=== PATIENT | male | born 1975 | race African-American/Black ===

== ENCOUNTER 2023-11-19 13:17 | Inpatient (IN) | payer OTHER ==
[~2023-11-19 13:17] MED LIST: Iopamidol-370 76% 500 ML MDV (1 ML CHARGE) ONE
[2023-11-19] MEDS ORDERED: CEFAZOLIN 2 GM VIAL ONE ×2 (13:33→15:10)
[2023-11-19] MEDS ORDERED: Boostrix 0.5 ML (Tdap) VIAL (>/=7 yrs of age) ONE (13:33)
[2023-11-19] MEDS ORDERED: Sodium Chloride 0.9% 100 ML ONE ×2 (13:33→15:10)
[2023-11-19 13:36] LABS: #Basophils 0.1 thou/uL (0.0-0.2); #Eosinphils 0.2 thou/uL (0.0-0.7); #Monocytes 0.7 thou/uL (0.11-0.59); #Neutrophils 6.3 thou/uL (1.40-6.50); %Basophils 0.6 % (0.0-1.0); %Lymphocytes 24.2 % (21.0-51.0); %Monocytes 7.6 % (0.0-10.0); %Neutrophils 65.1 % (42.0-75.0); Hematocrit 34.2 % (42.0-52.0); Hemoglobin 9.8 g/dL (14.0-18.0); Mean Corpuscular HGB CONC 28.7 g/dL (32.0-36.0); Mean Corpuscular Hemoglobin 23.7 pg (27.0-31.0); Mean Corpuscular Volume 82.8 fl (78.0-98.0); Mean Platelet Volume 10.2 fL (7.4-10.4); Platelet Count 326 10x3/uL (130-400); RBC Distribution Width 17.6 % (11.5-14.5); Red Blood Cell (RBC) Count 4.13 mill/uL (4.70-6.10); White Blood Cell (WBC) Count 9.7 10x3/uL (4.8-10.8)
[2023-11-19] MEDS ORDERED: Morphine 4 MG/ML VIAL ONE ×2 (13:36→13:52)
[2023-11-19] MEDS ORDERED: Ondansetron PF 4 MG/2 ML Vial ONE ×3 (13:36→17:28)
[2023-11-19 13:54] LABS: ALT (SGPT) 21 U/L (8-55); AST (SGOT) 33 U/L (5-34); Albumin 3.7 g/dL (3.5-5.0); Alkaline Phosphatase 77 U/L (40-110); Anion Gap 12 mmol/L (10-20); BUN (Urea Nitrogen) 12 mg/dL (8.9-20.6); Bilirubin, Total 0.5 mg/dL (0.2-1.2); Calc. Creatinine Clearance 0 mL/min (70-130); Calcium 8.7 mg/dL (7.8-10.44); Carbon Dioxide 18 mmol/L (22-29); Chloride 106 mmol/L (98-107); Estimated GFR 84; Globulin 2.9 g/dL (2.4-3.5); Glucose 144 mg/dL (70-105); Potassium 3.6 mmol/L (3.5-5.1); Protein, Total 6.6 g/dL (6.0-8.3); Sodium 132 mmol/L (136-145)
[2023-11-19 14:07] LABS: Anisocytosis SLIGHT = 6-15 cells HPF (0-5); CellaVision Operator ID LAB.MJL; Hypochromia SLIGHT = 6-15 cells HPF (0-5); Ovalocytes SLIGHT = 2-5 cells HPF (0-1); Platelet Adequacy Comment Platelets Normal; Poikilocytosis SLIGHT = 6-15 cells HPF (0-5); Polychromasia SLIGHT = 2-3 cells HPF (0-2); Target Cells SLIGHT = 2-5 cells HPF (0-1)
[2023-11-19] MEDS ORDERED: Dextrose 50% Abboject 50 ML SYRINGE SLOW IVP PRN (14:13)
[2023-11-19] MEDS ORDERED: Dextrose 5% in Water 1,000 ML IV PRN (14:13)
[2023-11-19] MEDS ORDERED: Glucagon 1 MG/ML KIT IM PRN (14:13)
[2023-11-19] MEDS ORDERED: Ipratropium/Albuterol 3 ML NEB NEB PRN (14:13)
[2023-11-19] MEDS ORDERED: Ondansetron PF 4 MG/2 ML Vial IVP PRN ×2 (14:13→17:33)
[2023-11-19] MEDS ORDERED: Ondansetron ODT 4 MG TAB PO PRN (14:13)
[2023-11-19] MEDS ORDERED: Morphine 2 MG/ML VIAL SLOW IVP PRN (14:13)
[2023-11-19] MEDS ORDERED: Rib Fracture Protocol PO SCH (14:15)
[2023-11-19 14:49] LABS: Acetaminophen Less than 10 mcg/mL (10.0-30.0); Alcohol Less than 10.0 mg/dL (Less than 10); Salicylate Less than 8.0 mg/dL (15.0-30.0)
[2023-11-19 14:54] LABS: Troponin I Less than 0.010 ng/mL (< 0.028)
[2023-11-19] MEDS ORDERED: KETAMINE 100 MG/ML (5ML VIAL) ONE (15:04)
[2023-11-19] MEDS ORDERED: Etomidate 40 MG (20 mL) VIAL ONE (15:04)
[2023-11-19] MEDS ORDERED: Rocuronium Bromide 10 MG/ML (10ML VIAL) ONE (15:07)
[2023-11-19] MEDS ORDERED: Lidocaine 1% PF 5 ML VIAL ONE (15:07)
[2023-11-19] MEDS ORDERED: Dexamethasone 20 MG/5 ML VIAL ONE (15:07)
[2023-11-19] MEDS ORDERED: SUCCINYLCHOLINE/SOD CL,ISO/PF 200 MG/10 ML SYRINGE FS ONE (15:07)
[2023-11-19] MEDS ORDERED: fentaNYL PF 100 MCG/2 ML SYRINGE ONE ×3 (15:07→16:15)
[2023-11-19 15:35] LABS: #Basophils 0.1 thou/uL (0.0-0.2); #Eosinphils 0.1 thou/uL (0.0-0.7); #Monocytes 1.5 thou/uL (0.11-0.59); #Neutrophils 20.5 thou/uL (1.40-6.50); %Basophils 0.3 % (0.0-1.0); %Eosinophils 0.3 % (0.0-10.0); %Lymphocytes 4.4 % (21.0-51.0); %Monocytes 6.5 % (0.0-10.0); %Neutrophils 87.9 % (42.0-75.0); Hematocrit 29.3 % (42.0-52.0); Hemoglobin 8.8 g/dL (14.0-18.0); Mean Corpuscular Hemoglobin 23.7 pg (27.0-31.0); Mean Platelet Volume 10.1 fL (7.4-10.4); Platelet Count 319 10x3/uL (130-400); RBC Distribution Width 17.3 % (11.5-14.5); Red Blood Cell (RBC) Count 3.71 mill/uL (4.70-6.10)
[2023-11-19 15:36] LABS: White Blood Cell (WBC) Count 23.3 10x3/uL (4.8-10.8)
[2023-11-19 15:46] LABS: INR-International Normal Ratio 1.2; PTT 26.6 sec (22.9-36.1); Prothrombin Time 14.7 sec (12.0-14.7)
[2023-11-19 16:03] LABS: Anion Gap 11 mmol/L (10-20); BUN (Urea Nitrogen) 12 mg/dL (8.9-20.6); Calc. Creatinine Clearance 0 mL/min (70-130); Calcium 8.1 mg/dL (7.8-10.44); Carbon Dioxide 21 mmol/L (22-29); Chloride 106 mmol/L (98-107); Estimated GFR 99; Glucose 161 mg/dL (70-105); Potassium 4.7 mmol/L (3.5-5.1); Sodium 133 mmol/L (136-145)
[2023-11-19] MEDS ORDERED: Calcium Chloride 1 GM/10 ML Abboject SYRINGE ONE (16:51)
[2023-11-19] MEDS ORDERED: Metoclopramide HCl 10 MG (2 mL) VIAL ONE (17:28)
[2023-11-19] MEDS ORDERED: HYDROmorphone 2 MG/ML VIAL ONE (17:28)
[2023-11-19] MEDS ORDERED: Promethazine HCl 25 MG/ML VIAL IM PRN ×2 (17:33)
[2023-11-19] MEDS ORDERED: diphenhydrAMINE 50 MG/ML VIAL IM PRN (17:33)
[2023-11-19] MEDS ORDERED: Ondansetron HCl/PF 4 MG/2 ML Vial IVP PRN (17:33)
[2023-11-19] MEDS ORDERED: HYDROmorphone 2 MG/ML VIAL SLOW IVP PRN (17:33)
[2023-11-19] MEDS ORDERED: HYDROmorphone/PF 10 MG in Sodium Chloride 0.9% 99 ML IV PRN (17:33)
[2023-11-19] MEDS ORDERED: Naloxone HCl 0.4 mg/ml Vial IV PRN (17:33)
[2023-11-19] MEDS ORDERED: diphenhydrAMINE 50 MG/ML VIAL IVP PRN (17:33)
[2023-11-19] MEDS ORDERED: Morphine Sulfate 2 MG/ML SYRINGE SLOW IVP PRN (17:33)
[2023-11-19] MEDS ORDERED: Meperidine HCl/PF 25 MG/ML VIAL SLOW IVP PRN (17:33)
[2023-11-19] MEDS ORDERED: diphenhydrAMINE 25 MG CAP PO PRN (17:33)
[2023-11-19] MEDS ORDERED: Communication Order-Pharmacy FS SCH (17:45)
[2023-11-19] MEDS ORDERED: HYDROmorphone/PF 10 MG in Sodium Chloride 0.9% 99 ML IVPB PRN (18:00)
[2023-11-19] MEDS ORDERED: Dexmedetomidine 200 MCG/2 ML VIAL ONE (18:33)
[2023-11-19 21:01] LABS: Critical Call Chem-Lactate NUR.SEG1@2101; Lactic Acid 4.6 mmol/L (0.5-2.2)
[2023-11-19] MEDS: Sodium Chloride 0.9% 1,000 ML IV SCH (21:41)
[2023-11-19] MEDS: CEFAZOLIN 2 GM in Sodium Chloride 0.9% 100 ML IVPB SCH (21:41)
[2023-11-19 21:47] VITALS: BMI 24.3
[2023-11-20 04:49] LABS: #Monocytes 1.1 thou/uL (0.11-0.59); #Neutrophils 8.9 thou/uL (1.40-6.50); %Basophils 0.1 % (0.0-1.0); %Lymphocytes 8.3 % (21.0-51.0); %Monocytes 9.8 % (0.0-10.0); %Neutrophils 81.3 % (42.0-75.0); Hematocrit 28.2 % (42.0-52.0); Mean Corpuscular HGB CONC 31.9 g/dL (32.0-36.0); Mean Corpuscular Hemoglobin 24.8 pg (27.0-31.0); Mean Corpuscular Volume 77.7 fl (78.0-98.0); Platelet Count 229 10x3/uL (130-400); RBC Distribution Width 16.5 % (11.5-14.5); Red Blood Cell (RBC) Count 3.63 mill/uL (4.70-6.10)
[2023-11-20] MEDS: Acetaminophen 500 MG TAB PO SCH (05:16)
[2023-11-20] MEDS: Cyclobenzaprine 10 MG TAB PO PRN (05:16)
[2023-11-20 05:31] LABS: ALT (SGPT) 23 U/L (8-55); AST (SGOT) 44 U/L (5-34); Albumin 3.2 g/dL (3.5-5.0); Alkaline Phosphatase 54 U/L (40-110); Anion Gap 12 mmol/L (10-20); BUN (Urea Nitrogen) 10 mg/dL (8.9-20.6); Bilirubin, Total 0.5 mg/dL (0.2-1.2); Calc. Creatinine Clearance 119 mL/min (70-130); Calcium 8.2 mg/dL (7.8-10.44); Carbon Dioxide 23 mmol/L (22-29); Chloride 106 mmol/L (98-107); Estimated GFR 107; Globulin 2.4 g/dL (2.4-3.5); Glucose 131 mg/dL (70-105); Potassium 4.5 mmol/L (3.5-5.1); Protein, Total 5.6 g/dL (6.0-8.3); Sodium 136 mmol/L (136-145)
[2023-11-20] MEDS: Gabapentin 300 MG CAP PO SCH (08:37)
[2023-11-20] MEDS: HYDROcodone/Acetaminophen 10/325 mg Tablet PO PRN (18:25)
[2023-11-20] MEDS: fentaNYL 50 mcg/mL 1 mL Vial SLOW IVP PRN (19:27)
[2023-11-21] MEDS: Acetaminophen 500 MG TAB PO PRN (14:23)
[2023-11-21] MEDS: HYDROcodone/Acetaminophen 10/325 mg Tablet PO PRN (19:15)
[2023-11-21] MEDS: Enoxaparin 40 MG (0.4 mL) SYRINGE SC SCH (20:29)
[2023-11-22 10:07] LABS: #Monocytes 0.9 thou/uL (0.11-0.59); #Neutrophils 8.3 thou/uL (1.40-6.50); %Basophils 0.4 % (0.0-1.0); %Eosinophils 0.2 % (0.0-10.0); %Monocytes 8.4 % (0.0-10.0); %Neutrophils 82.6 % (42.0-75.0); Hemoglobin 8.3 g/dL (14.0-18.0); Mean Corpuscular HGB CONC 30.7 g/dL (32.0-36.0); Mean Corpuscular Hemoglobin 24.5 pg (27.0-31.0); Mean Corpuscular Volume 79.6 fl (78.0-98.0); Mean Platelet Volume 9.6 fL (7.4-10.4); Platelet Count 230 10x3/uL (130-400); RBC Distribution Width 17.1 % (11.5-14.5); Red Blood Cell (RBC) Count 3.39 mill/uL (4.70-6.10); White Blood Cell (WBC) Count 10.1 10x3/uL (4.8-10.8)
[2023-11-22 10:37] LABS: ALT (SGPT) 14 U/L (8-55); AST (SGOT) 42 U/L (5-34); Albumin 3.1 g/dL (3.5-5.0); Alkaline Phosphatase 57 U/L (40-110); Anion Gap 10 mmol/L (10-20); BUN (Urea Nitrogen) 8 mg/dL (8.9-20.6); Bilirubin, Total 0.6 mg/dL (0.2-1.2); Calc. Creatinine Clearance 131 mL/min (70-130); Calcium 8.2 mg/dL (7.8-10.44); Carbon Dioxide 24 mmol/L (22-29); Chloride 101 mmol/L (98-107); Estimated GFR 110; Globulin 2.9 g/dL (2.4-3.5); Glucose 97 mg/dL (70-105); Potassium 4.1 mmol/L (3.5-5.1); Sodium 131 mmol/L (136-145)
[2023-11-23 12:03] VITALS: BP 133/78; TEMP 98.1
== END 2023-11-23 15:42 | disposition home or self-care (01) | DRG 956 ==
LOC: ERS 13:17 → SDC 14:55 → SURG A 18:04
PROVIDERS: ADMIT Orthopaedic Surgery; ATTEND Orthopaedic Surgery
PROC: 0QSB04Z Reposition Right Lower Femur with Internal Fixation Device, Open Approach (ICD-10-PCS; principal; 2023-11-19)
PROC: 3E0234Z Introduction of Serum, Toxoid and Vaccine into Muscle, Percutaneous Approach (ICD-10-PCS; 2023-11-19)
DX: S72.461B Displaced supracondylar fracture with intracondylar extension of lower end of right femur, initial encounter for open fracture type I or II (principal); S27.329A Contusion of lung, unspecified, initial encounter; S22.42XA Multiple fractures of ribs, left side, initial encounter for closed fracture; V69.9XXA Occupant (driver) (passenger) of heavy transport vehicle injured in unspecified traffic accident, initial encounter; Y92.89 Other specified places as the place of occurrence of the external cause
CPT/HCPCS: 36415; 36416; 36430; 70450; 71045; 71260; 72125; 72170; 74177; 80053; 80307; 83605; 84484; 85025; 85610; 85730; 86850; 86900; 86901; 90715; 93005; C1713; G0390; J1100; J1170; J1650; J2270; J2405; J2765; J3010; J3490; J7050; P9016; Q9967

== ENCOUNTER 2023-12-06 06:14 | Inpatient (IN) | payer OTHER ==
[2023-12-06] MEDS ORDERED: fentaNYL PF 100 MCG/2 ML SYRINGE ONE ×2 (07:00→10:00)
[2023-12-06] MEDS ORDERED: Rocuronium Bromide 10 MG/ML (10ML VIAL) ONE (07:00)
[2023-12-06] MEDS ORDERED: Lidocaine 2% PF 5 ML VIAL ONE (07:00)
[2023-12-06] MEDS ORDERED: Ondansetron PF 4 MG/2 ML Vial ONE (07:00)
[2023-12-06] MEDS ORDERED: Dexamethasone 20 MG/5 ML VIAL ONE (07:00)
[2023-12-06] MEDS ORDERED: PROPOFOL 20 ML ONE (07:01)
[2023-12-06] MEDS ORDERED: Midazolam HCl 2 mg/2 ml Vial ONE (07:06)
[2023-12-06] MEDS ORDERED: fentaNYL 50 mcg/mL 1 mL Vial ONE ×2 (07:06→11:25)
[2023-12-06] MEDS ORDERED: Bupivacaine PF 0.5% 30 ML VIAL ONE (07:07)
[2023-12-06] MEDS ORDERED: Sodium Chloride 0.9% 100 ML ONE (07:09)
[2023-12-06] MEDS ORDERED: CEFAZOLIN 2 GM VIAL ONE (07:09)
[2023-12-06] MEDS ORDERED: SUCCINYLCHOLINE/SOD CL,ISO/PF 200 MG/10 ML SYRINGE FS ONE (07:34)
[2023-12-06] MEDS ORDERED: Glycopyrrolate 0.2 MG/ML 5 ML SYRINGE ONE (09:57)
[2023-12-06] MEDS ORDERED: NEOSTIGMINE 3 MG/3 ML SYR 3 MG/3 ML SYRINGE ONE (09:57)
[2023-12-06] MEDS ORDERED: Ketorolac Tromethamine 30 MG (1 mL) VIAL ONE (09:57)
[2023-12-06] MEDS ORDERED: HYDROmorphone 2 MG/ML VIAL ONE (10:12)
[2023-12-06] MEDS ORDERED: Promethazine HCl 25 MG/ML VIAL IM PRN (10:33)
[2023-12-06] MEDS ORDERED: Ondansetron HCl/PF 4 MG/2 ML Vial IVP PRN (10:33)
[2023-12-06] MEDS ORDERED: HYDROmorphone 2 MG/ML VIAL SLOW IVP PRN (10:33)
[2023-12-06] MEDS ORDERED: Ondansetron PF 4 MG/2 ML Vial SLOW IVP PRN (10:55)
[2023-12-06] MEDS ORDERED: HYDROmorphone 0.5 MG/0.5 ML SYRINGE ONE (12:27)
[2023-12-06] MEDS: HYDROcodone/Acetaminophen 10/325 mg Tablet PO PRN (13:53)
[2023-12-06 15:10] VITALS: BMI 24.3
[2023-12-06] MEDS: Morphine 2 MG/ML VIAL SLOW IVP PRN (16:40)
[2023-12-07 05:26] LABS: #Basophils 0.1 thou/uL (0.0-0.2); #Eosinphils 0.1 thou/uL (0.0-0.7); #Neutrophils 8.7 thou/uL (1.40-6.50); %Basophils 0.5 % (0.0-1.0); %Eosinophils 0.5 % (0.0-10.0); %Monocytes 8.8 % (0.0-10.0); %Neutrophils 78.8 % (42.0-75.0); Hemoglobin 8.1 g/dL (14.0-18.0); Mean Corpuscular Hemoglobin 24.4 pg (27.0-31.0); Mean Corpuscular Volume 81.3 fl (78.0-98.0); Mean Platelet Volume 8.8 fL (7.4-10.4); Platelet Count 846 10x3/uL (130-400); RBC Distribution Width 18.7 % (11.5-14.5); Red Blood Cell (RBC) Count 3.32 mill/uL (4.70-6.10)
[2023-12-07] MEDS: HYDROcodone/Acetaminophen 10/325 mg Tablet PO PRN (10:04)
[2023-12-07] MEDS ORDERED: Communication Order-Pharmacy FS SCH (15:15)
[2023-12-07] MEDS: TETANUS, DIPHTHERIA TOX,ADULT (TDVAX) 0.5 ML VIAL IM ONE (15:38)
[2023-12-07] MEDS: Ketorolac Tromethamine 30 MG (1 mL) VIAL IVP SCH (18:29)
[2023-12-07] MEDS: Aspirin 81 mg Enteric Coated Tablet PO SCH (20:19)
[2023-12-08 07:45] VITALS: BP 119/70; TEMP 98.8
== END 2023-12-08 11:15 | disposition home or self-care (01) | DRG 482 ==
LOC: SDC 06:14 → SJJU 10:57 → OBSVTOIN 12-07 15:04
PROVIDERS: ADMIT Orthopaedic Surgery; ATTEND Orthopaedic Surgery
PROC: 0QUB07Z Supplement Right Lower Femur with Autologous Tissue Substitute, Open Approach (ICD-10-PCS; principal; 2023-12-07)
PROC: 0QBC0ZZ Excision of Left Lower Femur, Open Approach (ICD-10-PCS; 2023-12-07)
DX: S72.461 Displaced supracondylar fracture with intracondylar extension of lower end of right femur (principal); V69.9XXD Occupant (driver) (passenger) of heavy transport vehicle injured in unspecified traffic accident, subsequent encounter
CPT/HCPCS: 36415; 85025; 96374; 96376; C1713; C1889; G0378; J0665; J1100; J1170; J1885; J2001; J2250; J2272; J2405; J2704; J3010; J3490

== ENCOUNTER 2024-08-03 10:18 | Inpatient (IN) | payer OTHER ==
[2024-07-31 10:46] VITALS: BMI 23.0
[2024-08-03] MEDS ORDERED: PROPOFOL 40 ML ONE (12:19)
[2024-08-03] MEDS ORDERED: Fentanyl 250 MCG/5 ML VIAL ONE (12:19)
[2024-08-03] MEDS ORDERED: CEFAZOLIN 2 GM VIAL ONE (12:21)
[2024-08-03] MEDS ORDERED: Glycopyrrolate 0.2 MG/ML 5 ML SYRINGE ONE (12:35)
[2024-08-03] MEDS ORDERED: HYDROmorphone 2 MG/ML VIAL ONE (13:49)
[2024-08-03] MEDS ORDERED: Ondansetron PF 4 MG/2 ML Vial ONE (14:38)
[2024-08-03] MEDS ORDERED: Ketorolac Tromethamine 30 MG (1 mL) VIAL ONE (14:38)
[2024-08-03] MEDS ORDERED: Ondansetron PF 4 MG/2 ML Vial SLOW IVP PRN (15:08)
[2024-08-03] MEDS ORDERED: HYDROcodone/Acetaminophen 10/325 mg Tablet PO PRN (15:08)
[2024-08-03] MEDS ORDERED: Communication Order-Pharmacy FS SCH (15:15)
[2024-08-03] MEDS ORDERED: fentaNYL 50 mcg/mL 1 mL Vial ONE ×2 (15:18→17:02)
[2024-08-03] MEDS ORDERED: Dexmedetomidine 200 MCG/2 ML VIAL ONE (15:19)
[2024-08-03] MEDS ORDERED: HYDROmorphone 0.5 MG/0.5 ML SYRINGE ONE ×2 (15:22→15:50)
[2024-08-03] MEDS ORDERED: Piperacillin/Tazobactam 3.375 GM VIAL ONE (17:09)
[2024-08-03] MEDS ORDERED: Sodium Chloride 0.9% 100 ML ONE (17:09)
[2024-08-03] MEDS: Piperacillin/Tazobactam 3.375 GM in Sodium Chloride 0.9% 100 ML IVPB SCH ×2 (17:14→22:09)
[2024-08-03] MEDS: HYDROcodone/Acetaminophen 10/325 mg Tablet PO PRN (18:45)
[2024-08-03] MEDS: Morphine 2 MG/ML VIAL SLOW IVP PRN (18:45)
[2024-08-03] MEDS: Vancomycin (BATCH) 2 GM in Premix 1 BAG IVPB SCH (19:41)
[2024-08-04] MEDS: Vancomycin (BATCH) 1.5 GM in Premix 1 BAG IVPB SCH (05:13)
[2024-08-04 06:43] LABS: #Basophils Less than 0.03 10x3/uL (0.0-0.2); %Basophils 0.1 % (0.0-1.0); %Eosinophils 1.4 % (0.0-10.0); %Lymphocytes 12.1 % (21.0-51.0); %Monocytes 6.8 % (0.0-10.0); %Neutrophils 79.3 % (42.0-75.0); Hematocrit 27.8 % (42.0-52.0); Hemoglobin 8.3 g/dL (14.0-18.0); Mean Corpuscular HGB CONC 29.9 g/dL (32.0-36.0); Mean Corpuscular Hemoglobin 21.5 pg (27.0-31.0); Mean Platelet Volume 9.4 fL (7.4-10.4); Platelet Count 386 10x3/uL (130-400); RBC Distribution Width 17.5 % (11.5-14.5); Red Blood Cell (RBC) Count 3.86 mill/uL (4.70-6.10)
[2024-08-04 06:46] LABS: Vancomycin, Random 10.2 ug/mL (See Comment)
[2024-08-04 06:56] LABS: ALT (SGPT) 5 U/L (8-55); AST (SGOT) 13 U/L (5-34); Albumin 2.6 g/dL (3.5-5.0); Alkaline Phosphatase 103 U/L (40-110); Anion Gap 9 mmol/L (10-20); BUN (Urea Nitrogen) 6 mg/dL (8.9-20.6); Bilirubin, Total 0.5 mg/dL (0.2-1.2); Calc. Creatinine Clearance 119 mL/min (70-130); Carbon Dioxide 24 mmol/L (22-29); Chloride 105 mmol/L (98-107); Estimated GFR 108; Globulin 3.6 g/dL (2.4-3.5); Glucose 108 mg/dL (70-105); Potassium 3.9 mmol/L (3.5-5.1); Protein, Total 6.2 g/dL (6.0-8.3); Sodium 134 mmol/L (136-145)
[2024-08-04] MEDS: FLU (Fluarix Triv) TS24-25(6MOS UP)/PF 45 MCG/0.5 ML Syringe IM ONE (08:01)
[2024-08-04] MEDS: Piperacillin/Tazobactam 3.375 GM in Sodium Chloride 0.9% 100 ML IVPB SCH (08:01)
[2024-08-04] MEDS: Piperacillin/Tazobactam 3.375 GM VIAL ONE (23:33)
[2024-08-05 05:46] LABS: #Basophils 0.04 10x3/uL (0.0-0.2); %Basophils 0.4 % (0.0-1.0); %Eosinophils 2.1 % (0.0-10.0); %Lymphocytes 14.2 % (21.0-51.0); %Monocytes 9.8 % (0.0-10.0); %Neutrophils 73.3 % (42.0-75.0); Hematocrit 27.7 % (42.0-52.0); Hemoglobin 8.3 g/dL (14.0-18.0); Mean Corpuscular Hemoglobin 21.6 pg (27.0-31.0); Mean Corpuscular Volume 72.1 fL (78.0-98.0); Mean Platelet Volume 9.2 fL (7.4-10.4); Platelet Count 405 10x3/uL (130-400); RBC Distribution Width 17.4 % (11.5-14.5); Red Blood Cell (RBC) Count 3.84 mill/uL (4.70-6.10)
[2024-08-05] MEDS: DAPTOmycin 600 MG in Sodium Chloride 0.9% 50 ML IVPB SCH (20:59)
[2024-08-06 07:09] LABS: Eosinophils 2 % (0-10); Hypochromia SLIGHT = 6-15 cells HPF (0-5); Lymphocytes 4 % (21-51); Macrocytosis SLIGHT = 6-15 cells HPF (0-5); Monocytes 3 % (0-10); Neutrophil 91 % (42-75); Platelet Adequacy Comment Platelets Normal; Polychromasia SLIGHT = 2-3 cells HPF (0-2)
[2024-08-06] MEDS ORDERED: Lidocaine 1% PF 5 ML VIAL ONE (07:19)
[2024-08-06] MEDS ORDERED: Sodium Bicarbonate 2.5 MEQ/5 ML SDV ONE (07:19)
[2024-08-06 08:55] LABS: Microcytosis SLIGHT = 6-15 cells HPF (0-5)
[2024-08-06 10:48] LABS: Hematocrit 29.4 % (42.0-52.0); Hemoglobin 8.8 g/dL (14.0-18.0); Mean Corpuscular HGB CONC 29.9 g/dL (32.0-36.0); Mean Corpuscular Hemoglobin 21.9 pg (27.0-31.0); Mean Corpuscular Volume 73.1 fL (78.0-98.0); Mean Platelet Volume 8.7 fL (7.4-10.4); Platelet Count 402 10x3/uL (130-400); RBC Distribution Width 17.4 % (11.5-14.5); Red Blood Cell (RBC) Count 4.02 mill/uL (4.70-6.10)
[2024-08-09 13:03] LABS: CRP,High Sensitivity (Inhouse) 10.31 mg/dL (< or = 0.5)
[2024-08-09 13:04] LABS: Anion Gap 12 mmol/L (10-20); BUN (Urea Nitrogen) 8 mg/dL (8.9-20.6); CK (CPK) 62 U/L (30-200); Calc. Creatinine Clearance 131 mL/min (70-130); Calcium 9.2 mg/dL (7.8-10.44); Carbon Dioxide 26 mmol/L (22-29); Chloride 100 mmol/L (98-107); Estimated GFR 112; Glucose 96 mg/dL (70-105); Potassium 4.5 mmol/L (3.5-5.1); Sodium 133 mmol/L (136-145)
[2024-08-09 13:21] LABS: #Basophils 0.03 10x3/uL (0.0-0.2); %Basophils 0.4 % (0.0-1.0); %Eosinophils 2.8 % (0.0-10.0); %Lymphocytes 16.8 % (21.0-51.0); %Monocytes 8.8 % (0.0-10.0); %Neutrophils 70.8 % (42.0-75.0); Hematocrit 28.2 % (42.0-52.0); Hemoglobin 8.4 g/dL (14.0-18.0); Mean Corpuscular HGB CONC 29.8 g/dL (32.0-36.0); Mean Corpuscular Volume 73.8 fL (78.0-98.0); Platelet Count 498 10x3/uL (130-400); RBC Distribution Width 17.2 % (11.5-14.5); Red Blood Cell (RBC) Count 3.82 mill/uL (4.70-6.10)
[2024-08-10 15:59] VITALS: BP 123/72; TEMP 98.4
== END 2024-08-10 17:00 | disposition home or self-care (01) | DRG 498 ==
LOC: SDC 10:18 → SURG A 15:08
PROVIDERS: ADMIT Orthopaedic Surgery; ATTEND Orthopaedic Surgery
PROC: 0QPB04Z Removal of Internal Fixation Device from Right Lower Femur, Open Approach (ICD-10-PCS; principal; 2024-08-03)
PROC: 0QBB0ZZ Excision of Right Lower Femur, Open Approach (ICD-10-PCS; 2024-08-03)
PROC: 02HV33Z Insertion of Infusion Device into Superior Vena Cava, Percutaneous Approach (ICD-10-PCS; 2024-08-06)
PROC: B518ZZA Fluoroscopy of Superior Vena Cava, Guidance (ICD-10-PCS; 2024-08-06)
PROC: B548ZZA Ultrasonography of Superior Vena Cava, Guidance (ICD-10-PCS; 2024-08-06)
DX: T84.620A Infection and inflammatory reaction due to internal fixation device of right femur, initial encounter (principal); M86.8X5 Other osteomyelitis, thigh; T85.848A Pain due to other internal prosthetic devices, implants and grafts, initial encounter; Y79.2 Prosthetic and other implants, materials and accessory orthopedic devices associated with adverse incidents; Y83.8 Other surgical procedures as the cause of abnormal reaction of the patient, or of later complication, without mention of misadventure at the time of the procedure; F17.210 Nicotine dependence, cigarettes, uncomplicated; Y92.89 Other specified places as the place of occurrence of the external cause; Z79.899 Other long term (current) drug therapy; B95.62 Methicillin resistant Staphylococcus aureus infection as the cause of diseases classified elsewhere; Z71.6 Tobacco abuse counseling; D64.9 Anemia, unspecified
CPT/HCPCS: 36415; 36573; 80048; 80053; 80202; 82550; 82565; 85025; 86141; 87070; 87077; 87186; 87205; J0878; J1170; J1885; J2272; J2405; J2543; J2704; J3010; J3370